=== PATIENT | female | born 1970 | race African-American/Black ===

== ENCOUNTER → 2019-01-16 | Outpatient (CLI) | payer OTHER ==
--- NOTE | 2019-01-16 13:04 | KCIC ---
Bilateral digital screening mammograms: Reason for examination: Routine baseline screening. History of breast reduction. Interpretation was made with the benefit of CAD. The skin and nipples show no abnormalities. No abnormal axillary lymph nodes are seen. The breast parenchyma shows scattered fibroglandular density. (Breast density: Category B.) There are postop changes from breast reduction. There appear to be nodular densities at the 12:00 B position of the right breast. Further evaluation with ultrasound is recommended. There are also small nodular densities at the 2:00 B position and the 10:30 B position of the left breast. Further evaluation with ultrasound is recommended. There are no suspicious calcifications or architectural distortions. Benign calcifications are seen. Impression: Small nodular densities seen bilaterally. Recommend further evaluation with ultrasound. BI-RADS Category 0: Incomplete. Needs additional imaging evaluation. "Our facility is accredited by the [employer] Mammography [employer]." This patient's information has been entered into a reminder system for the patient to be notified with the results of her examination and a target date for the next mammogram. Electronically signed by: Nellie Black MD (01/16/2019 1:01 PM) [id number]
--- NOTE | 2019-01-16 16:33 | KCIC ---
CHEST AP ONLY Clinical indications: TB screening. History of bells palsy. COMPARISON: None available. Findings: Small granuloma of the right midlung zone is seen. Small granuloma of the left upper lobe is seen. No cavitary nodule is evident. No acute lung infiltrate or pleural effusion or pulmonary edema or lung mass or pneumothorax is seen. Calcified right hilar lymph nodes are seen. Calcified granuloma is seen within the medial aspect of the liver. The heart size, pulmonary vasculature, mediastinum and both mikey are unremarkable Impression: No acute radiographic abnormality is seen. Old granulomatous disease. Specifically, there are no findings of active tuberculous lung disease. Electronically signed by: Vasile Up MD (01/16/2019 4:31 PM) [facility]
== END | disposition home or self-care (01) ==
LOC: KCIC MAMMO 10:25
PROVIDERS: ATTEND Nurse Practitioner Gerontology
DX: Z12.31 Encounter for screening mammogram for malignant neoplasm of breast (principal); Z11.1 Encounter for screening for respiratory tuberculosis; J84.10 Pulmonary fibrosis, unspecified; R59.0 Localized enlarged lymph nodes; Z86.69 Personal history of other diseases of the nervous system and sense organs
CPT/HCPCS: 71045; 77067

== ENCOUNTER → 2019-01-26 | Outpatient (CLI) | payer OTHER ==
--- NOTE | 2019-01-26 11:43 | KCIC ---
Bilateral breast ultrasound: Reason for examination: Nodular densities on screening mammogram. History of breast reduction. Comparison is made to mammographic exam dated 01/16/2019. Ultrasound examination was performed in the areas of mammographic concern and at the axilla. In the right breast at the 12:00 position 4 cm from the nipple, there are several small anechoic lesion with echogenic rims. The appearance suggests cysts or cystic fat necrosis. In the 12:00 position 2 cm from the nipple, there are small lesions with benign cystic and fibrocystic appearances but the largest cystic area measuring 9.9 mm in size. No suspicious-appearing lesions are seen. No abnormal appearing lymph nodes are seen in the right axilla. In the left breast at the 10:30 position 4 cm from the nipple, there is a 9.6 mm hypoechoic fibrocystic type lesion. In the 2:00 position 7 cm from the nipple, there is a 8.2 mm lesion also probably representing a cyst. No solid suspicious-appearing lesions are seen. No abnormal appearing lymph nodes are seen in the axilla. IMPRESSION: Benign cystic and fibrocystic type lesions bilaterally. No suspicious-appearing lesion seen. Recommend reevaluation in 6 months with mammograms and ultrasound. BI-RADS Category 3: Probably Benign. "Our facility is accredited by the [employer] Mammography [employer]." This patient's information has been entered into a reminder system for the patient to be notified with the results of her examination and a target date for the next mammogram. Electronically signed by: Nellie Black MD (01/26/2019 11:40 AM) [id number]
== END | disposition home or self-care (01) ==
LOC: KCIC US 09:40
PROVIDERS: ATTEND Nurse Practitioner Gerontology
DX: R92.8 Other abnormal and inconclusive findings on diagnostic imaging of breast (principal)
CPT/HCPCS: 76641

== ENCOUNTER → 2019-07-21 | Outpatient (CLI) | payer MEDICAID ==
--- NOTE | 2019-07-21 15:30 | KCIC ---
Bilateral diagnostic digital mammograms: Reason for examination: Follow-up nodules. History of bilateral breast reduction.. Comparison is made to previous study dated 01/16/2019. Interpretation was made with the benefit of CAD. The skin and nipples show no new abnormalities. No abnormal axillary lymph nodes are seen. The breast parenchyma shows scattered fibroglandular density. (Breast density: Category B.) There are postop changes seen from reduction surgery. There continue to be small nodular parenchymal 12:00 B position of the right breast and 2:00 B position of the left breast which are stable. There are no new dominant masses, suspicious calcifications or architectural distortions. Impression: Postoperative changes from breast reduction. No change in small nodular densities seen bilaterally. Ultrasound to follow. BI-RADS Category 0: Incomplete. Needs additional imaging evaluation. Bilateral breast ultrasound: Comparison is made to previous study dated 01/26/2019. Ultrasound examination was performed in the areas of mammographic concern and at the axilla. In the right breast, there are 2 benign-appearing cystic type lesions at the 12:00 position 4 cm from the nipple measuring up to 4.5 mm in greatest dimension. These appear to be slightly smaller than on previous exam. No suspicious-appearing nodules are seen. No abnormal appearing lymph nodes are seen in the axilla. In the left breast, there continues to be a cluster of cystic lesions measuring up to 7 mm in size. There is also simple cyst at the 2:00 position 7 cm from the nipple. No suspicious appearing lymph nodes are seen in the left axilla. IMPRESSION: Benign-appearing cystic lesions bilaterally with some interval improvement. No suspicious lesion seen. Recommend routine mammographic follow-up. BI-RADS Category 2: Benign. "Our facility is accredited by the [employer] Mammography [employer]." This patient's information has been entered into a reminder system for the patient to be notified with the results of her examination and a target date for the next mammogram. Electronically signed by: Nellie Black MD (07/21/2019 3:27 PM) [facility] [place] [id number]
== END | disposition home or self-care (01) ==
LOC: KCIC MAMMO 13:01
PROVIDERS: ATTEND Nurse Practitioner Gerontology
DX: N60.02 Solitary cyst of left breast (principal); N64.89 Other specified disorders of breast
CPT/HCPCS: 76641; 77066

== ENCOUNTER → 2022-01-16 | Outpatient (CLI) | payer MEDICAID ==
--- NOTE | 2022-01-16 11:48 | KCIC ---
AP and Lateral Views of the Chest 01/16/2022 11:07 AM Indication: Chronic sternal pain. Sternal injury 5-6 years ago. Comparison: Chest radiograph January 16, 2019 Findings: Calcified lymph nodes noted in the right hilum, unchanged. Heart size is normal. There is n o focal consolidation or infiltrate identified There is no evidence of pneumothorax or pleural effusi on. No acute osseous abnormalities are identified. Impression: No evidence of acute cardiopulmonary process. Electronically signed by: Carlos Alberto Berumen MD (01/16/2022 11:46 AM) [id number]
== END ==
LOC: KCIC 11:02
PROVIDERS: ATTEND Family Medicine
DX: I89.8 Other specified noninfective disorders of lymphatic vessels and lymph nodes (principal); R07.89 Other chest pain
CPT/HCPCS: 71046